=== PATIENT | female | born 1995 | race African-American/Black ===

== ENCOUNTER 2021-04-01 12:55 | Emergency (ER) | payer SELFPAY ==
[~2021-04-01] VITALS: Ht 157.5 cm; Wt 71.7 kg
[2021-04-01] MEDS ORDERED: ATHLETIC FOOT C30 GM TOP (13:25)
[2021-04-02] MEDS ORDERED: CORTIZONE-10 1%56 GM TD (17:20)
== END 2021-04-01 13:28 | disposition home or self-care (01) ==
LOC: FSED 13:05
DX: R21 Rash and other nonspecific skin eruption (principal)
CPT/HCPCS: 99282

== ENCOUNTER 2021-04-02 16:08 | Emergency (ER) | payer SELFPAY ==
[~2021-04-02] VITALS: Ht 157.5 cm; Wt 71.7 kg
[~2021-04-02 16:08] MED LIST: ATHLETIC FOOT C30 GM TOP
[2021-04-02] MEDS ORDERED: CORTIZONE-10 1%56 GM TD (17:20)
== END 2021-04-02 18:10 | disposition home or self-care (01) ==
LOC: ER 17:58
DX: L30.1 Dyshidrosis [pompholyx] (principal)
CPT/HCPCS: 99283